=== PATIENT | male | born 1965 | race Caucasian/White ===

== ENCOUNTER → 2017-01-26 | Outpatient (CLI) | payer OTHER ==
--- NOTE | 2017-01-26 16:01 | RAD ---
Indication pain. Chronic. Internally and externally rotated views of the right shoulder were obtained as well as a Y view. There is some minimal degenerative change at the AC joint. No acute bony finding is seen.
== END | disposition home or self-care (01) ==
LOC: DXRADRC 15:41
PROVIDERS: ATTEND General Practice
DX: M19.011 Primary osteoarthritis, right shoulder (principal); X58.XXXD Exposure to other specified factors, subsequent encounter
CPT/HCPCS: 73030